=== PATIENT | female | born 1965 | race Caucasian/White ===

== ENCOUNTER 2017-11-26 13:03 | Emergency (ER) | payer BC ==
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
[2017-11-26] MEDS ORDERED: LORazepam 1 MG Tab PO ONE (14:33)
[2017-11-26 15:22] LABS: ACETAMINOPHEN 0 ug/mL (10-30)
== END 2017-11-26 19:48 ==
LOC: JD.ED 13:03
DX: F41.9 Anxiety disorder, unspecified (principal); F32.9 Major depressive disorder, single episode, unspecified; R44.0 Auditory hallucinations; F19.10 Other psychoactive substance abuse, uncomplicated; R45.851 Suicidal ideations; Z79.899 Other long term (current) drug therapy
CPT/HCPCS: 36415; 80053; 80306; 81001; 84443; 85025; 99285; A9270; G0480

== ENCOUNTER 2018-01-13 15:48 | Emergency (ER) | payer BC ==
[2018-01-13] MEDS ORDERED: Sodium Chloride 0.9% 10 ML Syringe FLUSH PRN (16:02)
[2018-01-13] MEDS ORDERED: Sodium Chloride 0.9% 1,000 ML IV SCH ×2 (16:15→18:00)
--- NOTE | 2018-01-13 16:45 | EDM.PDOC ---
ED HPI GENERAL MEDICAL PROBLEM - General Chief Complaint: General Stated Complaint: [facility] Time Seen by Provider: 01/13/18 16:01 Source of Information: Reports: EMS Notes Reviewed, RN Notes Reviewed - History of Present Illness INITIAL COMMENTS - FREE TEXT/NARRATIVE: 52 year old female brought in by [facility] ambulance, S/P seizure, probable multiple drug overdose. Initial limited information from EMS states mother had gone to check on patient, had told mother over phone earlier this afternoon that she was having auditory hallucinations, hx of severe depression. Mother states she appeared depressed on her arrival, shortly after arrival when not watching her she fell to floor, had a several minute generalized seizure. No known hx of seizure disorder. After the seizure stopped her eyes were open and she seemed to be breathing OK but did not wake up to the point of following comands or verbalizing in any meaningful way. Upon EMS arrival no longer seizing but still unresponsive verbally. Transported here with no further intervention other than 02 NC. Upon arrival to ED still not verbalizing or able to obey commands, no response to sternal rub. Further hx obtained from mother later states that she has had severe depression, transferred to,treated at [facility] 11/26/17 for severe depression, hallucinations with no know hx of prior psychosis at that time. She is on multiple meds including Geodon, Tramadal, Bupropyn, Cymbalta, Gabapentin. There are pills in most of the bottles, no idea how many may be missing at this time. The tramadol bottle is empty. - Related Data Allergies Allergy/AdvReac Type Severity Reaction Status Date / Time No Known Allergies Allergy Verified 11/26/17 13:28 Home Meds: Home Meds Albuterol [Proair HFA] 8.5 mg PO ASDIRECTED PRN 11/26/17 [History] DULoxetine [Cymbalta] 60 mg PO DAILY 11/26/17 [History] Gabapentin [Gralise] 600 mg PO TID 11/26/17 [History] Modafinil 200 mg PO DAILY 11/26/17 [History] Ziprasidone HCl 20 mg PO TID 11/26/17 [History] traMADol [Ultram] 50 mg PO ASDIRECTED PRN 11/26/17 [History] Past Medical History Musculoskeletal History: Reports: Other (See Below) Other Musculoskeletal History: left shoulder with pins and since has been removed Psychiatric History: Reports: Addiction, Anxiety, Depression, Emotional Problems , Hallucinations, Panic Attack Other Psychiatric History: hydrocodone many years. Social & Family History - Tobacco Use Smoking Status *Q: Current Every Day Smoker Years of Tobacco use: 20 Packs/Tins Daily: 1 - Caffeine Use Caffeine Use: Reports: Coffee, Energy Drinks, Soda, Tea - Recreational Drug Use Drug Use in Last 12 Months: Yes Recreational Drug Type: Reports: Other (see below) Other Recreational Drug Type: pt is eluctant to give an answer right now and keeps saying I don't know how to answer that question. something happened iin [place] with drugs but unable to identify at this time-says she can't focus ED ROS GENERAL - Review of Systems Review Of Systems: Unable To Obtain ED EXAM, GENERAL - Physical Exam Exam: See Below Exam Limited By: Other (obtunded, nonverbal, totally unresponsive) General Appearance: Obtunded Eye Exam: Bilateral Eye: PERRL (pupils midsize, slightly reactive) Ears: Normal External Exam Nose: Normal Inspection Throat/Mouth: Other (oral mucosa very dry) Head: Atraumatic. No: Facial Swelling Neck: Other (no visible swelling or bruising) Cardiovascular: Regular Rate, Rhythm (heart rate 93 on arrival) GI/Abdominal: Soft, Other (not distended) Extremities: Normal Inspection, Other (no visible swelling, bruising, no needle tracts visible) Neurological: Other (obtunded, unresponsive verbally or to pain) Skin Exam: Warm, Dry, Normal Color, No Rash EKG INTERPRETATION EKG Date: 01/13/18 Rhythm: NSR [place]: Normal P-Wave: Present QRS: Normal ST-T: Normal QT: Prolonged Course - Vital Signs Last Recorded V/S: Last Vital Signs Temp 98.2 F 01/13/18 15:55 Pulse 77 01/13/18 17:32 Resp 18 01/13/18 17:32 BP 104/72 01/13/18 17:32 Pulse Ox 100 01/13/18 17:32 - Orders/Labs/Meds Orders: Active Orders 24 hr Category Date Time Status EKG 12 Lead [EKG Documentation Completion] [RC] STAT Care 01/13/18 16:57 Active Peripheral IV Care [RC] . DIRECTED Care 01/13/18 16:04 Active Ventilator Assessment [RT Ventilator, Adult] [RC] Care 01/13/18 17:09 Active ASDIRECTED Chest 1V Frontal [CR] Routine Exams 01/13/18 16:30 Taken Head wo Cont [CT] Stat Exams 01/13/18 16:12 Ordered MYCOPLASMA PNEUMONIAE IGM AB [CHEM] Stat Lab 01/13/18 19:11 Stop Req Desired Level of Sedation (RASS) [AST] Click To Edit Oth 01/13/18 17:24 Ordered Peripheral IV Insertion Adult [OM.PC] Stat Oth 01/13/18 16:02 Ordered Labs: Laboratory Tests 01/13/18 01/13/18 01/13/18 Range/Units 15:55 15:55 15:55 WBC 9.35 (3.98-10.04) K/mm3 RBC 3.88 L (3.98-5.22) M/mm3 Hgb 11.8 (11.2-15.7) gm/L Hct 36.8 (34.1-44.9) % MCV 94.8 (79.4-94.8) fl MCH 30.4 (25.6-32.2) pg MCHC 32.1 L (32.2-35.5) g/dl RDW Std Deviation 47.2 H (36.4-46.3) fL Plt Count 302 (182-369) K/mm3 MPV 8.9 L (9.4-12.3) fl Neut % (Auto) 42.4 (34.0-71.1) % Lymph % (Auto) 47.2 (19.3-51.7) % [place] % (Auto) 8.2 (4.7-12.5) % Eos % (Auto) 1.6 (0.7-5.8) Baso % (Auto) 0.4 (0.1-1.2) % Neut # (Auto) 3.96 (1.56-6.13) K/mm3 Lymph # (Auto) 4.41 H (1.18-3.74) K/mm3 [place] # (Auto) 0.77 H (0.24-0.36) K/mm3 Eos # (Auto) 0.15 (0.04-0.36) K/mm3 Baso # (Auto) 0.04 (0.01-0.08) K/mm3 Sodium 140 (136-145) mEq/L Potassium 3.3 L (3.5-5.1) mEq/L Chloride 101 (98-107) mEq/L Carbon Dioxide 18 L (21-32) mEq/L Anion Gap 24.3 H (5-15) BUN 8 (7-18) mg/dL Creatinine 1.4 H (0.55-1.02) mg/dL Est Cr Clr Drug Dosing 40.59 mL/min Estimated GFR (MDRD) 39 (>60) mL/min BUN/Creatinine Ratio 5.7 L (14-18) Glucose 96 (74-106) mg/dL Lactic Acid (0.4-2.0) mmol/L Calcium 9.0 (8.5-10.1) mg/dL Total Bilirubin 1.0 (0.2-1.0) mg/dL AST 14 L (15-37) U/L ALT 20 (14-59) U/L Alkaline Phosphatase 98 (46-116) U/L Total Protein 6.9 (6.4-8.2) g/dl Albumin 3.6 (3.4-5.0) g/dl Globulin 3.3 gm/dL Albumin/Globulin Ratio 1.1 (1-2) Urine Opiates Screen (NEGATIVE) Ur Buprenorphine Scrn (NEGATIVE) Ur Oxycodone Screen (NEGATIVE) Urine Methadone Screen (NEGATIVE) Ur Propoxyphene Screen (NEGATIVE) Acetaminophen 0 L (10-30) ug/mL Ur Barbiturates Screen (NEGATIVE) Ur Tricyclics Screen (NEGATIVE) Ur Phencyclidine Scrn (NEGATIVE) Ur Amphetamine Screen (NEGATIVE) U Methamphetamines Scrn (NEGATIVE) U Benzodiazepines Scrn (NEGATIVE) U Cocaine Metab Screen (NEGATIVE) U Marijuana (THC) Screen (NEGATIVE) Ethyl Alcohol 0.00 (0.00) gm% 01/13/18 01/13/18 Range/Units 16:02 16:14 WBC (3.98-10.04) K/mm3 RBC (3.98-5.22) M/mm3 Hgb (11.2-15.7) gm/L Hct (34.1-44.9) % MCV (79.4-94.8) fl MCH (25.6-32.2) pg MCHC (32.2-35.5) g/dl RDW Std Deviation (36.4-46.3) fL Plt Count (182-369) K/mm3 MPV (9.4-12.3) fl Neut % (Auto) (34.0-71.1) % Lymph % (Auto) (19.3-51.7) % [place] % (Auto) (4.7-12.5) % Eos % (Auto) (0.7-5.8) Baso % (Auto) (0.1-1.2) % Neut # (Auto) (1.56-6.13) K/mm3 Lymph # (Auto) (1.18-3.74) K/mm3 [place] # (Auto) (0.24-0.36) K/mm3 Eos # (Auto) (0.04-0.36) K/mm3 Baso # (Auto) (0.01-0.08) K/mm3 Sodium (136-145) mEq/L Potassium (3.5-5.1) mEq/L Chloride (98-107) mEq/L Carbon Dioxide (21-32) mEq/L Anion Gap (5-15) BUN (7-18) mg/dL Creatinine (0.55-1.02) mg/dL Est Cr Clr Drug Dosing mL/min Estimated GFR (MDRD) (>60) mL/min BUN/Creatinine Ratio (14-18) Glucose (74-106) mg/dL Lactic Acid 8.8 H (0.4-2.0) mmol/L Calcium (8.5-10.1) mg/dL Total Bilirubin (0.2-1.0) mg/dL AST (15-37) U/L ALT (14-59) U/L Alkaline Phosphatase (46-116) U/L Total Protein (6.4-8.2) g/dl Albumin (3.4-5.0) g/dl Globulin gm/dL Albumin/Globulin Ratio (1-2) Urine Opiates Screen Negative (NEGATIVE) Ur Buprenorphine Scrn Negative (NEGATIVE) Ur Oxycodone Screen Negative (NEGATIVE) Urine Methadone Screen Negative (NEGATIVE) Ur Propoxyphene Screen Negative (NEGATIVE) Acetaminophen (10-30) ug/mL Ur Barbiturates Screen Negative (NEGATIVE) Ur Tricyclics Screen Negative (NEGATIVE) Ur Phencyclidine Scrn Negative (NEGATIVE) Ur Amphetamine Screen Negative (NEGATIVE) U Methamphetamines Scrn Negative (NEGATIVE) U Benzodiazepines Scrn Negative (NEGATIVE) U Cocaine Metab Screen Negative (NEGATIVE) U Marijuana (THC) Screen Negative (NEGATIVE) Ethyl Alcohol (0.00) gm% Meds: Medications Discontinued Medications Generic Name Dose Route Start Last Admin Trade Name Alfredq PRN Reason Stop Dose Admin Etomidate 16 mg 01/13/18 17:20 01/13/18 17:22 Amidate IVPUSH 01/13/18 17:21 16 mg ONETIME ONE Administration Sodium Chloride 1,000 mls @ 999 mls/hr 01/13/18 16:15 01/13/18 17:00 Normal Saline IV 999 mls/hr ONETIME MEGAN Administration Propofol Confirm 01/13/18 16:22 01/13/18 17:01 Diprivan 100 Ml Administered 01/13/18 16:23 Not Given Dose 100 mls @ as directed .ROUTE .STK-MED ONE Propofol 100 mls @ 2.041 mls/hr 01/13/18 17:30 01/13/18 17:25 Diprivan 100 Ml IV 5 mcg/kg/min TITRATE MEGAN 2.041 mls/hr Protocol Administration 5 MCG/KG/MIN Lactated Ringer's 1,000 mls @ 999 drops/hr 01/13/18 17:54 01/13/18 18:44 Ringers, Lactated IV 01/14/18 08:54 999 drops/hr .BOLUS ONE Administration Sodium Chloride 1,000 mls @ 999 mls/hr 01/13/18 18:00 01/13/18 18:44 Normal Saline IV 999 mls/hr ASDIRECTED MEGAN Administration Midazolam HCl 2 mg 01/13/18 17:21 01/13/18 17:22 Versed 1 Mg/Ml IVPUSH 01/13/18 17:22 2 mg ONETIME ONE Administration Midazolam HCl 2 mg 01/13/18 17:24 01/13/18 17:25 Versed 1 Mg/Ml IVPUSH 01/13/18 17:25 2 mg ONETIME ONE Administration Naloxone HCl 2 mg 01/13/18 17:20 01/13/18 17:22 Narcan IVPUSH 01/13/18 17:21 2 mg ONETIME ONE Administration Sodium Chloride 10 ml 01/13/18 16:02 01/13/18 17:00 Saline Flush FLUSH 10 ml ASDIRECTED PRN Administration Keep Vein Open Succinylcholine Chloride 100 mg 01/13/18 17:30 01/13/18 17:28 Quelicin IV 100 mg STAT MEGAN Administration - Re-Assessments/Exams Free Text/Narrative Re-Assessment/Exam: 01/13/18 18:53 This was called as a medical alert upon patient arrival. As noted patient breathing OK but did require jaw thrust to help open airway. Unresponsive verbally or to sternal rub. We did give narcan imediately 2 mg IV and with that looked a little bit more awake, attempted to make eye contact when asked questions and to squeeze fingers but did not follow any commands, did not, could not verbalize in any meaningful way. She than had a brief 2 minute seizure shortly after arrival involving primarily head, face, R arm. Given 2 mg versed IV that did control the seizure. It was already planned to intubate for airway control and protection. Nurse Director Of Parks And Recreation was called, preoxygenated, intubated without difficulty. BP dropped to the 70's after the versed and meds for intubation, etomidate, suc. choline. Given a total of 2 liters NS, over 1 liter LR and with that BP slowly improved up to 109/73 prior to transfer. Med box brought in by mother shows that she has been on Geodon, Cymbalta, Gabapentin , Bupropn, and tramadao. There still are pills in some of the bottles, some meds present in her 7 day pill box but tramadol bottle empty with 60 prescribed 6 days ago. Etoh came back neg. Lactic acid very high at 8.8, Co2 low at 18, anion gap high. I discussed admission with our Hospitalist endodontist but she believes there is too much going on with her to safely be admitted here, and that this will likely be more than a 4 day admission. I have discussed this [facility] per mother request, Dr Lind, Sewing Department Supervisor accepting provider. 01/13/18 19:18 We did send her out by [facility] helicopter with 35 to 40 minute transfer time of critical patient vs 85 to 90 minute transfer time by ground ambulance. Critical Care time of 172 minutes. This involved initial evalaluation of patient, hx from EMS, more extensive hx obtained from mother, ordering and interpretation of labs, Xrays. Review of prior medical records. Airway management, multiple repeat evaluations, transfer arrangements, documentation of all of the above. Departure - Departure Time of Disposition: 17:40 Disposition: DC/Tfer to Acute Hospital 02 Condition: Critical Clinical Impression: Seizure, Dehydration Drug overdose, multiple drugs Qualifiers: Encounter type: initial encounter Injury intent: intentional self-harm Qualified Code(s): T50.902A - Poisoning by unspecified drugs, medicaments and biological substances, intentional self-harm, initial encounter Hypotension Qualifiers: Hypotension type: unspecified hypotension type Qualified Code(s): I95.9 - Hypotension, unspecified - Discharge Information Referrals: PCP,Unknown [Primary Care Provider] - Forms: ED Department Discharge - My Orders Last 24 Hours: My Active Orders 01/13/18 16:02 Peripheral IV Insertion Adult [OM.PC] Stat 01/13/18 16:04 Peripheral IV Care [RC] . DIRECTED 01/13/18 16:12 Head wo Cont [CT] Stat 01/13/18 16:30 Chest 1V Frontal [CR] Routine 01/13/18 16:57 EKG 12 Lead [EKG Documentation Completion] [RC] STAT 01/13/18 17:24 Desired Level of Sedation (RASS) [AST] Click To Edit 01/13/18 19:11 MYCOPLASMA PNEUMONIAE IGM AB [CHEM] Stat - Assessment/Plan Last 24 Hours: My Active Orders 01/13/18 16:02 Peripheral IV Insertion Adult [OM.PC] Stat 01/13/18 16:04 Peripheral IV Care [RC] . DIRECTED 01/13/18 16:12 Head wo Cont [CT] Stat 01/13/18 16:30 Chest 1V Frontal [CR] Routine 01/13/18 16:57 EKG 12 Lead [EKG Documentation Completion] [RC] STAT 01/13/18 17:24 Desired Level of Sedation (RASS) [AST] Click To Edit 01/13/18 19:11 MYCOPLASMA PNEUMONIAE IGM AB [CHEM] Stat
[2018-01-13] MEDS ORDERED: ePHEDrine 50 MG/ML SDV ONE (17:15)
[2018-01-13] MEDS ORDERED: Propofol 200 MG/20 ML SDV ONE (17:15)
[2018-01-13] MEDS ORDERED: Naloxone 0.4 MG/ML SDV IVPUSH ONE (17:20)
[2018-01-13] MEDS ORDERED: Etomidate 2 MG/ML 20 ML SDV IVPUSH ONE (17:20)
[2018-01-13] MEDS ORDERED: Midazolam 1 MG/ML 2 ML SDV IVPUSH ONE ×2 (17:21→17:24)
[2018-01-13] MEDS ORDERED: Succinylcholine 200 MG/10 ML MDV IV SCH (17:30)
--- NOTE | 2018-01-13 17:40 | PCM.SN ---
- Free Text/Narrative Note: Intubation in ED 01-13-18 Start- 1605 End- 1700 Called to ED regarding a unresponsive female patient in need of intubation ( suspected drug overdose). Upon arrival the patient was breathing spontaneously with a nasal cannula in place with saturations ranging from 98-100%. The patient did have an occasional apnea spell per nurse. As we were gathering supplies, the patient was exhibiting seizure like movements so 2mg of versed was given immediately and the seizure ceased. Patient was preoxygenated with 100% FiO2. Smooth IV rapid sequence induction with 3mg of versed, 16mg of etomidate, and 100mg of succinylcholine. The patient was intubated with a #7 OETT at 22cm at the teeth with ease x1 attempt per glidescope. Dentition unchanged. Bilateral breath sounds equal. + ETCO2 results. OETT secured with commercial tube mendes. Patient placed on the ventilator. OGT was placed at 45cm at the teeth and taped to OETT. ABG and CXR done. Blood pressure management with a few 10mg IV boluses of ephedrine (see nurses notes for vials and driver medic times). VSS. Report to ED physician. Sina Liz CRNA
[2018-01-13] MEDS ORDERED: Lactated Ringers 1,000 ML IV ONE (17:54)
--- NOTE | 2018-01-14 08:10 | CR ---
Chest: Frontal view of the chest was obtained. Comparison: No previous study. Heart size and mediastinum are normal. Tip of endotracheal tube is seen at the lower level of clavicles. Nasogastric tube is seen slightly past the gastroesophageal junction although proximal port is above the GE junction and should be advanced. Lungs are clear. Bony structures show degenerative change within the left shoulder as well as old proximal left humeral fracture which appears healed. Impression: 1. Satisfactory position of endotracheal tube. Nasogastric tube could be advanced. 2. Nothing acute is otherwise seen on frontal chest x-ray. Diagnostic code #3
== END 2018-01-13 18:40 ==
LOC: JD.ED 15:48
DX: T50.902A Poisoning by unspecified drugs, medicaments and biological substances, intentional self-harm, initial encounter (principal); R56.9 Unspecified convulsions; I95.9 Hypotension, unspecified; F17.210 Nicotine dependence, cigarettes, uncomplicated; F32.9 Major depressive disorder, single episode, unspecified; Z79.899 Other long term (current) drug therapy
CPT/HCPCS: 31500; 36415; 51702; 71045; 80053; 80306; 83605; 85025; 93005; 96361; 96365; 96375; 99291; 99292; G0480; J0330; J2250; J2310; J7040; J7050; J7120; J2704; J3490